=== PATIENT | male | born 1985 | race American Indian/Alaskan Native ===

== ENCOUNTER 2018-06-24 02:53 | Emergency (ER) | payer MEDICARE, MEDICAID ==
[2018-06-24 03:00] VITALS: BP 137/85; PULSE 88; RESP 22; TEMP 98.8; O2SAT 96
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
== END 2018-06-24 04:12 | disposition home or self-care (01) ==
LOC: C.ER 02:53
DX: S30.0XXA Contusion of lower back and pelvis, initial encounter (principal); S00.211A Abrasion of right eyelid and periocular area, initial encounter; Y09 Assault by unspecified means